=== PATIENT | male | born 1970 | race Caucasian/White ===

== ENCOUNTER 2021-01-19 11:10 | Emergency (ER) | payer OTHER ==
[2021-01-19] MEDS ORDERED: CEPHALEXIN500 MG PO (12:45)
== END 2021-01-19 13:10 | disposition home or self-care (01) ==
LOC: EDBD 11:10 → FER 11:10
DX: S61.243A Puncture wound with foreign body of left middle finger without damage to nail, initial encounter (principal); F17.210 Nicotine dependence, cigarettes, uncomplicated; J44.9 Chronic obstructive pulmonary disease, unspecified; Z23 Encounter for immunization; W29.4XXA Contact with nail gun, initial encounter; Y92.89 Other specified places as the place of occurrence of the external cause; Y99.0 Civilian activity done for income or pay
CPT/HCPCS: 73140; 90471; 90715